=== PATIENT | female | born 1960 | race Caucasian/White ===

== ENCOUNTER 2023-02-01 12:34 | Emergency (ER) | payer BC ==
--- NOTE | 2023-02-01 13:47 | ED ---
Chest Pain HPI - General Source: patient Mode of arrival: ambulatory <Javy King - Last Filed: 02/01/23 13:51> <Graham Koch - Last Filed: 02/01/23 18:02> - General Chief Complaint: Chest Pain Stated Complaint: ABD Pain, Nosebleed - History of Present Illness Initial Comments: 62-year-old female resents to the ED with a chief complaint of indigestion. Patient states that every time she drinks water has a pain similar to indigestion in the middle of her chest. Denies nausea vomiting or diarrhea. Quicknote performed, verbally signed Javy King PA-C (Javy King) Dictation was produced using [employer] dictation software. please excuse any grammatical, word or spelling errors. Chief Complaint: 62-year-old female presents emergency part for indigestion History of Present Illness: 62-year-old female she presents to the emergency department with symptoms that she feels is indigestion. She started new medication trintellix recently. She felt like after sinus medication she had some bouts of indigestion. She does report symptoms only whenever she eats. Patient denies any pressure to the chest. Nonradiating to the shoulders or jaw. No associated diaphoresis or nausea. She called her primary care doctor was told to come to the emergency room because primary care doctor was worried she was having acute coronary syndrome. Patient has no cardiac history. She has seen cardiologists in the past for angina. She does not have any coronary artery stents. She denies ever having had cardiac catheterization. Patient is asymptomatic at the bedside. She does have history of hypertension, high cholesterol and tobacco use. The ROS documented in this emergency department record has been reviewed and confirmed by me. Those systems with pertinent positive or negative responses have been documented in the HPI. All other systems are other negative and/or noncontributory. (Graham Koch) - Related Data Home Medications Medication Instructions Recorded Confirmed ALPRAZolam [Xanax] 0.25 mg PO BID PRN 12/23/14 12/23/14 FLUoxetine HCL [PROzac] 40 mg PO DAILY 12/23/14 12/23/14 Omeprazole [PriLOSEC] 10 mg PO AC-BRKFST 12/23/14 12/23/14 Rosuvastatin [Crestor] 20 mg PO HS 12/23/14 12/23/14 Previous Rx's Medication Instructions Recorded Cephalexin [Keflex] 500 mg PO Q6HR #20 cap 12/23/14 Mupirocin [Bactroban Oint] 1 applic TOPICAL TID #22 gm 12/23/14 valACYclovir HCL [Valtrex] 1,000 mg PO TID #42 tablet 12/23/14 Allergies Allergy/AdvReac Type Severity Reaction Status Date / Time Penicillins Allergy Dyspnea Verified 02/01/23 13:40 Review of Systems ROS Other: All systems not noted in ROS Statement are negative. <Javy King - Last Filed: 02/01/23 13:51> ROS Other: All systems not noted in ROS Statement are negative. <Graham Koch - Last Filed: 02/01/23 18:02> ROS Statement: Those systems with pertinent positive or pertinent negative responses have been documented in the HPI. EKG Findings - EKG Comments: EKG Findings:: My EKG interpretation: Ventricular rate 59, sinus bradycardia,. 176, QRS 80, QTc 433. No [place] prolongation, no QTC prolongation, no ST or T-wave changes noted. Overall, this EKG is unremarkable <Graham Koch - Last Filed: 02/01/23 18:02> Past Medical History Past Medical History: No Reported History, Chest Pain / Angina, Hypertension History of Any Multi-Drug Resistant Organisms: None Reported Past Surgical History: Orthopedic Surgery Past Psychological History: Anxiety Smoking Status: Current every day smoker Past Alcohol Use History: Occasional Past Drug Use History: None Reported <Javy King - Last Filed: 02/01/23 13:51> General Exam Limitations: no limitations General appearance: alert, in no apparent distress Respiratory exam: Present: normal lung sounds bilaterally Cardiovascular Exam: Present: regular rate, normal rhythm Extremities exam: Present: normal inspection Back exam: Present: normal inspection Neurological exam: Present: alert, oriented X3 Skin exam: Present: warm, dry <Javy King - Last Filed: 02/01/23 13:51> <Graham Koch - Last Filed: 02/01/23 18:02> - General Exam Comments Initial Comments: PHYSICAL EXAM: General Impression: Alert and oriented x3, not in acute distress HEENT: Normocephalic atraumatic, extra-ocular movements intact, pupils equal and reactive to light bilaterally, mucous membranes moist. Cardiovascular: Heart regular rate and rhythm Chest: Able to complete full sentences, no retractions, no tachypnea Abdomen: abdomen soft, non-tender, non-distended, no organomegaly Musculoskeletal: Pulses present and equal in all extremities, no peripheral edema Motor: no focal deficits noted Neurological: CN II-XII grossly intact, no focal motor or sensory deficits noted Skin: Intact with no visualized rashes Psych: Normal affect and mood (Graham Koch) Course Vital Signs 02/01/23 02/01/23 02/01/23 13:35 15:33 15:35 Temperature 98.7 F 98.5 F Pulse Rate 65 64 Pulse Rate [ 66 Pulse Oximetery ] Respiratory 18 18 Rate Blood Pressure 154/92 142/97 O2 Sat by Pulse 97 97 Oximetry 02/01/23 02/01/23 16:34 17:02 Temperature 98.4 F Pulse Rate 65 64 Pulse Rate [ Pulse Oximetery ] Respiratory 18 17 Rate Blood Pressure 139/97 142/87 O2 Sat by Pulse 97 97 Oximetry Chest Pain MDM <Graham Koch - Last Filed: 02/01/23 18:02> - MDM Was pt. sent in by a medical professional or institution (MESHA Morin, AIR CONTROL ELECTRONICS OPERATOR, urgent care, hospital, or fpc...) When possible be specific @ -No Did you speak to anyone other than the patient for history (EMS, parent, family, police, friend...)? What history was obtained from this source @ -No Did you review nursing and triage notes (agree or disagree)? Why? @ -I reviewed and agree with nursing and triage notes Were old charts reviewed (outside hosp., previous admission, EMS record, old EKG, old radiological studies, urgent care reports/EKG's, fpc records)? Report findings @ -No old charts were reviewed Differential Diagnosis (chest pain, altered mental status, abdominal pain women, abdominal pain men, vaginal bleeding, musculoskeletal, weakness, fever, dyspnea, syncope, headache, dizziness, GI bleed, back pain, seizure, CVA, palpatations, mental health)? @ -Differential Chest Pain: Stable Angina, Unstable Angina, STEMI, NSTEMI Aortic Dissection, Pneumothorax, Musculoskeletal, Esophageal Spasm GERD, Cholecystitis, Pancreatitis, Zoster, this is not meant to be an all-inclusive list. EKG interpreted by me (3pts min.). @ -See above X-rays interpreted by me (1pt min.). @ -None done CT interpreted by me (1pt min.). @ -None done U/S interpreted by me (1pt. min.). @ -None done What testing was considered but not performed or refused? (CT, X-rays, U/S, labs)? Why? @ -None What meds were considered but not given or refused? Why? @ -None Did you discuss the management of the patient with other professionals (professionals i.e. , PA, AIR CONTROL ELECTRONICS OPERATOR, lab, RT, psych nurse, social media job titles, bioprocessing manufacturing technician, teacher, service officer, pillowcase turner)? Give summary @ -No Was smoking cessation discussed for >3mins.? @ -No Was critical care preformed (if so, how long)? @ -No Were there social determinants of health that impacted care today? How? (Homelessness, low income, unemployed, alcoholism, drug addiction, transportation, low edu. Level, literacy, decrease access to med. care, senior care, rehab)? @ -No Was there de-escalation of care discussed even if they declined (Discuss DNR or withdrawal of care, Hospice)? DNR status @ -No What co-morbidities impacted this encounter? (DM, HTN, Smoking, COPD, CAD, Cancer, CVA, ARF, Chemo, Hep., AIDS, mental health diagnosis, sleep apnea, morbid obesity)? @ -None Was patient admitted / discharged? Hospital course, mention meds given and route, prescriptions, significant lab abnormalities, going to OR and other pertinent info. @ -62-year-old female presents emergency department for symptoms of indigestion. Her symptoms are very atypical for ACS. Denies any cardiac history. Vital signs stable. EKG is unremarkable. Laboratory evaluation obtained. A troponin is negative. Patient reevaluated at bedside at 6 on a similar condition. Patient reports discharge she is told to follow-up with primary care doctor. Undiagnosed new problem with uncertain prognosis? @ -No Drug Therapy requiring intensive monitoring for toxicity (Heparin, Nitro, Insulin, Cardizem)? @ -No Were any procedures done? @ -No Diagnosis/symptom? Acute, or Chronic, or Acute on Chronic? Uncomplicated (without systemic symptoms) or Complicated (systemic symptoms)? @ -1. Indigestion Side effects of treatment? @ -No Exacerbation, Progression, or Severe Exacerbation? @ -No Poses a threat to life or bodily function? How? (Chest pain, [place], [place], pneumonia, PE, COPD, DKA, ARF, appy, cholecystitis, CVA, Diverticulitis, Homicidal, Suicidal, threat to staff... and all critical care pts) @ -No (Graham Koch) Disposition <Javy King - Last Filed: 02/01/23 13:51> Is patient prescribed a controlled substance at d/c from ED?: No Time of Disposition: 18:02 <Graham Koch - Last Filed: 02/01/23 18:02> Clinical Impression: Chest pain Disposition: HOME SELF-CARE Condition: Good Instructions (If sedation given, give patient instructions): Chest Pain (ED) Referrals: Eugenia Patrick MD [Primary Care Provider] - 1-2 days
[2023-02-01 14:04] LABS: Basophils % (A) 0 %; Eosinophils # (A) 0.1 k/uL (0-0.7); Eosinophils % (A) 1 %; HCT 40.4 % (34.0-46.0); HGB 14.1 gm/dL (11.4-16.0); Lymphocytes # (A) 1.6 k/uL (1.0-4.8); Lymphocytes % (A) 23 %; MCH 32.6 pg (25.0-35.0); Mean Platelet Volume 8.6; Monocytes # (A) 0.4 k/uL (0-1.0); Monocytes % (A) 6 %; Neutrophils # (A) 4.7 k/uL (1.3-7.7); Neutrophils % (A) 69 %; Platelet Count 173 k/uL (150-450); RBC 4.34 m/uL (3.80-5.40); RDW 11.7 % (11.5-15.5); WBC 6.9 k/uL (3.8-10.6)
[2023-02-01 14:21] LABS: ALT 24 U/L (4-34); AST 27 U/L (14-36); African American GFR (CKD) >90 (>60 ml/min/1.73 sqM); Albumin 4.1 g/dL (3.5-5.0); Alkaline Phosphatase 66 U/L (38-126); Amylase 43 U/L (30-110); Anion Gap 7 mmol/L; Blood Urea Nitrogen 12 mg/dL (7-17); Calcium 8.9 mg/dL (8.4-10.2); Carbon Dioxide 29 mmol/L (22-30); Chloride 101 mmol/L (98-107); Glucose 114 mg/dL (74-99); Lipase 120 U/L (23-300); Non-African American GFR(CKD) >90 (>60 ml/min/1.73 sqM); Potassium 3.5 mmol/L (3.5-5.1); Sodium 137 mmol/L (137-145); Total Bilirubin 0.9 mg/dL (0.2-1.3)
[2023-02-01 18:11] VITALS: BP 122/85; PULSE 65; RESP 18; TEMP 97.6
== END 2023-02-01 18:11 | disposition home or self-care (01) ==
LOC: EC 12:34
DX: K30 Functional dyspepsia (principal); I10 Essential (primary) hypertension; F41.9 Anxiety disorder, unspecified; F17.200 Nicotine dependence, unspecified, uncomplicated; Z79.899 Other long term (current) drug therapy; Z88.0 Allergy status to penicillin
CPT/HCPCS: 36415; 80053; 82150; 83690; 84484; 85025; 93005; 99285